=== PATIENT | female | born 1950 | race Two or more races ===

== ENCOUNTER 2017-10-12 13:40 | Emergency (ER) | payer MEDICARE, OTHER ==
[~2017-10-12] VITALS: Ht 152.4 cm; Wt 80.8 kg
[2017-10-12 15:04] VITALS: BP 137/79
== END 2017-10-12 15:10 | disposition home or self-care (01) ==
LOC: ED 15:08
DX: R05 Cough (principal); H10.13 Acute atopic conjunctivitis, bilateral
CPT/HCPCS: 71046; 99284

== ENCOUNTER 2018-07-28 13:29 | Emergency (ER) | payer MEDICARE, OTHER ==
[~2018-07-28] VITALS: Ht 152.4 cm; Wt 82.4 kg
--- NOTE | 2018-07-28 13:58 | NUR ---
CALLED FROM [facility]. IN RESTROOM AT THIS TIME.
[2018-07-28 14:02] VITALS: BP 164/96
--- NOTE | 2018-07-28 14:02 | NUR ---
still in restroom @ [phone]
[2018-07-28] MEDS ORDERED: FLUORESCEIN OPHTHALMIC 1 MG STRIP ONE (14:15)
[2018-07-28] MEDS ORDERED: PROPARACAINE OPHTH 0.5%, 15ML ONE (14:15)
[2018-07-28] MEDS ORDERED: PROPARACAINE OPHTH 0.5%, 15ML RIGHTEYE ONE (14:30)
[2018-07-28] MEDS ORDERED: FLUORESCEIN OPHTHALMIC 1 MG STRIP RIGHTEYE ONE (14:30)
--- NOTE | 2018-07-28 15:33 | NUR ---
TASK RN: Patient/Caregiver given discharge instructions and they have confirmed that they understand the instructions. Patient ambulatory with steady gait.
== END 2018-07-28 15:34 | disposition home or self-care (01) ==
LOC: ED 15:21
DX: H11.31 Conjunctival hemorrhage, right eye (principal); I10 Essential (primary) hypertension; E07.9 Disorder of thyroid, unspecified
CPT/HCPCS: 99282

== ENCOUNTER 2019-08-22 15:21 | Emergency (ER) | payer MEDICARE, OTHER ==
[~2019-08-22] VITALS: Ht 154.9 cm; Wt 82.6 kg
[~2019-08-22 15:21] MED LIST: BUPR-173 PO; LOSA25TA25 PO; METH5TAB6 PO; METO25TA91 PO
[2019-08-22 16:17] LABS: MEAN CORPUSCULAR HEMOGLOBIN 29.3 pg (27.0-34.8); MEAN CORPUSCULAR HGB CONC 33.2 g/dL (32.4-35.8); MEAN CORPUSCULAR VOLUME 88.3 fL (80-100); MEAN PLATELET VOLUME 8.6 fL (7.4-10.4); PLATELET COUNT 340 x10^3/uL (130-400); RED BLOOD COUNT 5.02 x10^6/uL (3.82-5.3); RED CELL DISTRIBUTION WIDTH 15.3 % (9.6-15.2)
[2019-08-22] MEDS ORDERED: CELE200C PO (16:21)
[2019-08-22 16:22] LABS: ALBUMIN 3.9 g/dL (3.4-5.0); ANION GAP 6 mmol/L (5-15); CALCIUM 8.7 mg/dL (8.5-10.1); CHLORIDE 107 mmol/L (98-107); CREATININE 0.87 mg/dL (0.55-1.02)
[2019-08-22] MEDS ORDERED: BIOT10TA PO (16:22)
[2019-08-22] MEDS ORDERED: CHOL10003 PO (16:23)
[2019-08-22] MEDS ORDERED: CYAN50008 PO (16:24)
[2019-08-22] MEDS ORDERED: OMEG1CAP23 PO (16:24)
--- NOTE | 2019-08-22 16:32 | NUR ---
DR. CANDELARIO AT BEDSIDE. PATIENT IS IN NO DISTRESS.
--- NOTE | 2019-08-22 16:35 | NUR ---
Report received from break RIGO Peralta. Assumed care of pt. Pt currently resting on gurney. NAD noted. Skin PWD. Resp even and unlabored. Pt able to speak in full 7-10 word sentences, laughing with RIGO Peralta and other staff. Call light within reach. will cont to monitor pt.
[2019-08-22 16:40] LABS: BASOPHILS # (AUTO) 0.02 x10^3/uL (0-0.1); BASOPHILS % (AUTO) 0 % (0-1); EOSINOPHILS # (AUTO) 0.07 x10^3/uL (0-0.4); EOSINOPHILS % (AUTO) 1 % (1-7); LYMPHOCYTES # (AUTO) 1.53 x10^3/uL (1-3.4); LYMPHOCYTES % (AUTO) 10 % (22-44); MD SCAN; MONOCYTES # (AUTO) 0.73 x10^3/uL (0.2-0.8); MONOCYTES % (AUTO) 5 % (2-9); NEUTROPHILS # (AUTO) 12.56 x10^3/uL (1.8-6.8); NEUTROPHILS % (AUTO) 84 % (42-75)
--- NOTE | 2019-08-22 17:39 | NUR ---
Pt provided with DC instructions, all questions answered.
[2019-08-22 17:40] VITALS: BP 142/97
== END 2019-08-22 17:46 | disposition home or self-care (01) ==
LOC: ED 16:37
DX: B34.9 Viral infection, unspecified (principal); Z20.828 Contact with and (suspected) exposure to other viral communicable diseases; F41.1 Generalized anxiety disorder; R00.0 Tachycardia, unspecified; I11.9 Hypertensive heart disease without heart failure
CPT/HCPCS: 36415; 71045; 80048; 82040; 85025; 85379; 93005; 99285; U0001